=== PATIENT | female | born 1985 | race Caucasian/White ===

== ENCOUNTER 2019-11-08 22:23 | Emergency (ER) | payer OTHER ==
[2019-11-08 22:41] VITALS: BMI 26.5
[2019-11-08] MEDS ORDERED: ONDANSETRON 4 MG/2 ML VIAL IVPUSH ONE (22:44)
[2019-11-08] MEDS ORDERED: SODIUM CHLORIDE 1,000 ML IV STA (22:53)
[2019-11-08] MEDS ORDERED: ONDANSETRON 4 MG/2 ML VIAL ONE (22:56)
--- NOTE | 2019-11-08 23:04 | PDOC ---
History of Present Illness - General Chief Complaint: Nausea/Vomiting Stated Complaint: VOMITING Time Seen by Provider: 11/08/19 22:36 History Source: Patient Exam Limitations: No Limitations - History of Present Illness Initial Comments: 11/08/19 23:04 34 yo female currently 33 weeks presents to the ED for NB/NB vomiting, diarrhea and contractions. BUILDING SERVICEMAN is Dr. Hayden. Pt states the contractions began at 6 30 pm, less than 5 min apart, water did not break. Last /delivery was 18 months ago at 38 weeks gestation, no complications. Pt takes zofran at home with resolution of nausea. Pt has all care up to date. Pt admits to persistent vomiting throughout her with new onset diarrhea without dark or bright red stools. Denies F/C , abdominal pain, CP, SOB, changes in bladder habits Past History - Past Medical History Allergies/Adverse Reactions: Allergies Allergy/AdvReac Type Severity Reaction Status Date / Time No Known Allergies Allergy Verified 11/08/19 22:28 COPD: No Other medical history: hyperemisis - Psycho Social/Smoking Cessation Hx Smoking History: Never smoked Review of Systems - Review of Systems Constitutional: Yes: See HPI HEENTM: Yes: See HPI Respiratory: Yes: See HPI Cardiac (ROS): Yes: See HPI ABD/GI: Yes: See HPI : Yes: See HPI Musculoskeletal: Yes: See HPI Integumentary: Yes: See HPI Neurological: Yes: See HPI *Physical Exam - Vital Signs Last Vital Signs Temp Pulse Resp BP Pulse Ox 98.4 F 116 H 18 111/68 96 11/08/19 22:25 11/08/19 22:25 11/08/19 22:25 11/08/19 22:25 11/08/19 22:25 - Physical Exam General Appearance: Yes: Nourished, Appropriately Dressed. No: Apparent Distress HEENT: positive: EOMI Neck: positive: Supple. negative: Carotid bruit Respiratory/Chest: positive: Lungs Clear, Normal Breath Sounds. negative: Respiratory Distress, Accessory Muscle Use, Rapid RR, Crackles, Rales, Rhonchi, Stridor, Wheezing Cardiovascular: positive: Regular Rhythm, S1, S2, Tachycardia. negative: Edema , JVD, Murmur Vascular Pulses: Dorsalis-Pedis (R): 4+, Doralis-Pedis (L): 4+ Gastrointestinal/Abdominal: positive: Flat, Soft, Protuberent (). negative: Pulsatile Mass, Distended, Guarding, Rebound, Tenderness Musculoskeletal: negative: CVA Tenderness Extremity: positive: Normal Capillary Refill, Normal Inspection, Normal Range of Motion Integumentary: positive: Normal Color, Dry, Warm Neurologic: positive: Fully Oriented, Alert, Normal Mood/Affect, Normal Response ED Treatment Course - LABORATORY CBC & Chemistry Diagram: 11/08/19 23:05 11/08/19 23:05 Medical Decision Making - Medical Decision Making 34 yo female currently 33 weeks presents to the ED for NB/NB vomiting, diarrhea and contractions. BUILDING SERVICEMAN is Dr. Hayden. Pt states the contractions began at 6 30 pm, less than 5 min apart, water did not break. Last /delivery was 18 months ago at 38 weeks gestation, no complications. Pt takes zofran at home with resolution of nausea. Pt has all care up to date. Pt admits to persistent vomiting throughout her with new onset diarrhea without dark or bright red stools. Denies F/C , abdominal pain, CP, SOB, changes in bladder habits vitals show elevate HR to 116 IV placed, fluids and zofran given. Pt is medically safe and stable for OB evaluation and will return to the ED after clearance due to 33 weeks gestation with stated contractions Pt returns from OB cleared for DC after short monitoring and told by sound art instructor she is safe for DC home Labs WNL, pt admits to feeling much better after fluids and zofran CMP noted to be hemolyzed on arrival back to the ED. Pt feeling much better, tolerating PO and had no episodes of vomiting since arrival to ED Discussed strict return precautions, pt safe for DC home with PCP and OB f/u Discharge - Discharge Information Problems reviewed: Yes Clinical Impression/Diagnosis: Excessive vomiting Condition: Stable Disposition: HOME - Admission No - Additional Discharge Information Goals: discharge instructions: go home and rest drink at least 6-8 glasses of water/day regular diet return to labor and delivery: if having regular contractions decrease movement vaginal bleeding rupture of membranes keep doctors appointment - Follow up/Referral Referrals: Reggie Hayden MD [Primary Care Provider] - - Patient Discharge Instructions Patient Printed Discharge Instructions: DI for Nausea -- Adult, DI for Vomiting -- Adult Additional Instructions: Please see you Primary Doctor within the next 48 hours. Continue taking your prescribed antiemetic medications to prevent nausea. Return to the closest ER for new or concerning symptoms including but not limited to: contractions, abdominal pain, vaginal discharge, fevers. Thank you - Post Discharge Activity
[2019-11-08 23:26] LABS: BASO % 0.3 % (0-2.0); EOS % 0.1 % (0-4.5); HEMATOCRIT 40.4 % (32.4-45.2); HEMOGLOBIN 13.8 GM/dL (10.7-15.3); MCH 29.6 pg (25.7-33.7); MCHC 34.2 g/dl (32.0-36.0); MEAN CELL VOLUME 86.5 fl (80-96); MEAN PLT VOLUME 8.6 fl (7.5-11.1); MONO % 3.5 % (3.8-10.2); NEUT % 92.1 % (42.8-82.8); PLATELET COUNT 245 K/MM3 (134-434); RBC 4.67 M/mm3 (3.60-5.2); RDW 14.3 % (11.6-15.6); WHITE BLOOD COUNT 11.6 K/mm3 (4.0-10.0)
[2019-11-08 23:40] LABS: INR 0.99 (0.83-1.09); PROTHROMBIN TIME (PATIENT) 11.7 SEC (9.7-13.0)
[2019-11-09 00:02] VITALS: PULSE 111; TEMP 98.5
[2019-11-09 00:10] VITALS: BP 116/67
--- NOTE | 2019-11-09 01:27 | PDOC ---
Documentation entered by Mayela Chavez SCRIBE, acting as scribe for Sam Rock DO. Sam Rock DO: This documentation has been prepared by the Kathy moore Adrianna, SCRIBE, under my direction and personally reviewed by me in its entirety. I confirm that the documentation accurately reflects all work, treatment, procedures, and medical decision making performed by me. Attending Attestation - Resident Resident Name: Phil Ovalles - HPI HPI: The patient is a 34 year old female, 33 weeks , coming in for nausea, vomiting, associated with low abdominal cramping. Patient describes her abdominal cramping as she feels like she is having labor-like contractions. She endorses watery diarrhea since earlier today, after eating some rice and beans. No other complaints at this time. No fevers, chest pain, shortness of breath. - Physicial Exam PE: GENERAL: Well developed, well nourished. Awake and alert. No acute distress. HEENT: Normocephalic, atraumatic. PERRLA, EOMI. No conjunctival pallor. Sclera are non-icteric. Moist mucous membranes. Oropharynx is clear. NECK: Supple. Full ROM. No JVD. Carotid pulses 2+ and symmetric, without bruits. No thyromegaly. No lymphadenopathy. CARDIOVASCULAR: Regular rate and rhythm. No murmurs, rubs, or gallops. Distal pulses are 2+ and symmetric. PULMONARY: No evidence of respiratory distress. Lungs clear to auscultation bilaterally. No wheezing, rales or rhonchi. ABDOMINAL: . Gravid uterus. Non-tender. No rebound or guarding. No organomegaly. Normoactive bowel sounds. MUSCULOSKELETAL: Normal range of motion at all joints. No bony deformities or tenderness. No CVA tenderness. EXTREMITIES: No cyanosis. No clubbing. No edema. No calf tenderness. SKIN: Warm and dry. Normal capillary refill. No rashes. No jaundice. NEUROLOGICAL: Alert, awake, appropriate. Normal speech. T PSYCHIATRIC: Cooperative. Good eye contact. Appropriate mood and affect. - Medical Decision Making Assessment and Plan: 34 year old female in her late 3rd trimester of here with labor-like contractions, nausea, vomit, and watery diarrhea. Plan for fluid hydration and labs. Will check for OB clearance, and patient will go upstairs for monitoring. Update and plan: Patient has a white count of 11.1, which is likely reactive. She has had nausea and vomiting throughout her entire . Patient had a good, soft stool while upstairs. Denies any abdominal pain at this time. Her chemistries were grossly hemolyzed. Chem gross hemo Patient wants to go home at this time. She is able to tolerate PO, and was given fluids. Patient was cleared by OBGYN. She was given discharge precautions, and is stable for discharge. Impression: gastroenteritis/vomit associated with .
[2019-11-09 01:45] LABS: ANISOCYTOSIS 0; HELMET CELLS 0; HOWELL-JOLLY BODIES 0; MACROCYTOSIS 0; OVALOCYTE 0; PLATELET ESTIMATE NORMAL; ROULEAU 0; SICKELED CELLS 0; TARGET CELLS 0; TEAR DROP CELLS 0; TOXIC GRANULATION 0
== END 2019-11-09 01:08 | disposition home or self-care (01) ==
LOC: JER 22:23
DX: O26.893 Other specified pregnancy related conditions, third trimester (principal); Z3A.33 33 weeks gestation of pregnancy; R11.10 Vomiting, unspecified
CPT/HCPCS: 36415; 80053; 83690; 85025; 85610; 85730; 86850; 86900; 86901; 99284-25; J7030